=== PATIENT | female | born 1995 | race Caucasian/White ===

== ENCOUNTER 2018-12-20 16:48 | Outpatient (REF) | payer OTHER, SELFPAY ==
--- NOTE | 2018-12-20 15:40 | PAPFT_PTH ---
PATIENT: Daphne Soto LOC: [facility] U#:[id number] AGE/SX: 23/F ROOM: RE12/20/[address]: Lisa Welch APRN : 1995 BED: DIS: 12/20/2018 SPEC #: [id number] RECD: 12/21/18 12:53 STATUS: LUDIVINA REMonica #: [id number] FADY: 12/20/18 15:[address]: Lisa Welch DEPT: [facility] Cytology RECD BY: Karen Ortiz Tissues: 1 - CX/ENDOCX FOR PAP SMEARS Procedures: PAP THIN PREP/[facility] Screening HPV DNA PROBE Comments: [id number]
== END 2018-12-20 17:08 ==
LOC: LBN 16:48
DX: Z12.4 Encounter for screening for malignant neoplasm of cervix (principal); Z11.51 Encounter for screening for human papillomavirus (HPV)
CPT/HCPCS: 88142; 87624

== ENCOUNTER 2019-07-01 16:03 | Outpatient (REF) | payer OTHER, SELFPAY ==
[2019-07-02 15:29] LABS: Chlamydia Result Negative (Negative)
[2019-07-02 15:48] LABS: GC Result Negative (Negative)
== END 2019-07-01 16:23 ==
LOC: LBN 16:03
PROVIDERS: Visit Provider Internal Medicine
DX: R87.610 Atypical squamous cells of undetermined significance on cytologic smear of cervix (ASC-US) (principal); R87.810 Cervical high risk human papillomavirus (HPV) DNA test positive; Z72.51 High risk heterosexual behavior; Z11.3 Encounter for screening for infections with a predominantly sexual mode of transmission
CPT/HCPCS: 87491; 87591; 87480; 87510; 87660

== ENCOUNTER 2019-10-22 16:05 | Outpatient (REF) | payer OTHER, SELFPAY ==
--- NOTE | 2019-10-22 13:20 | PAPFT_PTH ---
PATIENT: Daphne Soto LOC: [facility] U#:[id number] AGE/SX: 23/F ROOM: RE10/22/[address]: Lisa Welch APRN : 1995 BED: DIS: 10/22/2019 SPEC #: [id number] RECD: 10/23/19 12:56 STATUS: LUDIVINA REMonica #: [id number] FADY: 10/22/19 13:[address]: Lisa Welch DEPT: [facility] Cytology RECD BY: Karen Ortiz Tissues: 1 - CX/ENDOCX FOR PAP SMEARS Procedures: PAP THIN PREP/[facility] Screening HPV DNA PROBE Comments: [id number] (CHLAMYDIA/GC)
[2019-10-24 14:33] LABS: Chlamydia Result Negative (Negative); GC Result Negative (Negative)
== END 2019-10-22 16:25 ==
LOC: LBN 16:05
DX: Z12.4 Encounter for screening for malignant neoplasm of cervix (principal); Z11.51 Encounter for screening for human papillomavirus (HPV); Z11.3 Encounter for screening for infections with a predominantly sexual mode of transmission; R87.810 Cervical high risk human papillomavirus (HPV) DNA test positive
CPT/HCPCS: 87491; 87591; 88142; 87624

== ENCOUNTER 2019-12-11 15:14 | Outpatient (REF) | payer OTHER, SELFPAY ==
--- NOTE | 2019-12-11 | ENDO_PTH ---
PATIENT: Daphne Soto LOC: [facility] U#:[id number] AGE/SX: 24/F ROOM: RE12/11/[address]: Reba Garcia : 1995 BED: DIS: 12/11/2019 SPEC #: [id number] RECD: 12/11/19 16:29 STATUS: LUDIVINA GONZALEZ #: [id number] FADY: 12/11/19 00:[address]: Reba Garcia DEPT: Surgical Specimen RECD BY: Fuad De Paz ENTERED: 12/11/19 16:32 SP TYPE: Endo OTHR DR: Lisa Welch APRN Tissues: 1 - ENDOCERVICAL BX/CURRETTE 2 - ENDOCERVICAL BX/CURRETTE Procedures: GROSS AND MICRO LEVEL 4 Comments: [id number]
== END 2019-12-11 15:34 ==
LOC: LBN 15:14
PROVIDERS: Visit Provider Obstetrics & Gynecology Gynecology
DX: N87.9 Dysplasia of cervix uteri, unspecified (principal); R87.610 Atypical squamous cells of undetermined significance on cytologic smear of cervix (ASC-US); R87.810 Cervical high risk human papillomavirus (HPV) DNA test positive
CPT/HCPCS: 88305

== ENCOUNTER 2020-12-08 11:15 | Outpatient (REF) | payer OTHER, SELFPAY ==
--- NOTE | 2020-12-08 11:00 | PAPFT_PTH ---
PATIENT: Daphne Soto LOC: [facility] U#:[id number] AGE/SX: 25/F ROOM: RE12/08/[address]: Lisa Welch APRN : 1995 BED: DIS: 12/08/2020 SPEC #: [id number] RECD: 12/08/20 13:01 STATUS: LUDIVINA GONZALEZ #: [id number] FADY: 12/08/20 11:[address]: Lisa Welch DEPT: [facility] Cytology RECD BY: Karen Ortiz Tissues: 1 - CX/ENDOCX FOR PAP SMEARS Procedures: PAP THIN PREP/[facility] Screening Comments: [id number]
== END 2020-12-08 11:16 | disposition home or self-care (01) ==
LOC: LBN 11:15
DX: Z12.4 Encounter for screening for malignant neoplasm of cervix (principal)
CPT/HCPCS: 88142

== ENCOUNTER 2022-04-26 09:09 | Outpatient (REF) | payer OTHER, SELFPAY ==
--- NOTE | 2022-04-26 08:00 | PAPFT_PTH ---
PATIENT: Daphne Soto LOC: [facility] U#:[id number] AGE/SX: 26/F ROOM: RE04/26/[address]: Latasha Sharma NP : 1995 BED: DIS: 04/26/2022 SPEC #: [id number] RECD: 04/26/22 13:21 STATUS: LUDIVINA REMonica #: [id number] FADY: 04/26/22 08:[address]: Latasha Sharma DEPT: [facility] Cytology RECD BY: Karen Ortiz ENTERED: 04/26/22 13:22 SP TYPE: PAPFT OTHR DR: Lisa Welch APRN Tissues: 1 - CX/ENDOCX FOR PAP SMEARS Procedures: PAP THIN PREP/[facility] Screening HPV DNA PROBE Comments: [id number] (CHLAMYDIA/GC)
[2022-04-27 14:50] LABS: Chlamydia Result Negative (Negative); GC Result Negative (Negative)
== END 2022-04-26 09:10 | disposition home or self-care (01) ==
LOC: LBN 09:09
PROVIDERS: Visit Provider Nurse Practitioner Family
DX: R87.610 Atypical squamous cells of undetermined significance on cytologic smear of cervix (ASC-US) (principal); Z12.4 Encounter for screening for malignant neoplasm of cervix; Z11.51 Encounter for screening for human papillomavirus (HPV); Z11.3 Encounter for screening for infections with a predominantly sexual mode of transmission
CPT/HCPCS: 87491; 87591; 88142; 87624